=== PATIENT | male | born 1970 | race Caucasian/White ===

== ENCOUNTER 2018-12-01 13:21 | Emergency (ER) | payer BC ==
--- NOTE | 2018-12-01 13:45 | EDM.PDOC ---
ED HPI GENERAL MEDICAL PROBLEM - General Stated Complaint: ELEVATED BLOOD PRESSURE CHEST PAIN Time Seen by Provider: 12/01/18 13:35 Source of Information: Reports: Patient History Limitations: Reports: No Limitations - History of Present Illness INITIAL COMMENTS - FREE TEXT/NARRATIVE: She comes emergency Department today with complaints of midsternal chest pain that started about 10:00 this morning. The patient noticed every time he was climbing up and down the tractor he would become short of breath and had some tightness in his midsternal region. This action is something that he does on a regular basis and never had the symptomology with this before. The symptom would resolve after he was done doing physical activity. His never had any symptomology like this before. Had a heart attack before. He then was ambulating through the grocery store when he noticed the same symptoms as well as a small amount of lightheadedness. He checked his blood pressure while he was at the grocery store and noticed it was quite elevated. He went to the clinic and he was referred to the emergency department for further evaluation. Upon arrival the patient really is without any symptomology. He has no chest pain or shortness of breath difficulty breathing. No nausea no vomiting. No abdominal pain. No weakness dizziness lightheadedness. No palpitations. He has had some recurrent cough over the past 3-4 months but he has been told this is from his gastroesophageal reflux disease. He has no fever no chills. He does not take an aspirin daily. He has felt more tired and fatigued over the past couple of weeks. - Related Data Allergies Allergy/AdvReac Type Severity Reaction Status Date / Time No Known Allergies Allergy Verified 12/01/18 14:22 Home Meds: Home Meds . [No Known Home Meds] 12/01/18 [History] Past Medical History HEENT History: Reports: None Cardiovascular History: Reports: Hypertension Respiratory History: Reports: None Gastrointestinal History: Reports: Diverticulosis, Irritable Bowel Syndrome Genitourinary History: Reports: None Neurological History: Reports: None Psychiatric History: Reports: None Endocrine/Metabolic History: Reports: None Hematologic History: Reports: None Immunologic History: Reports: None Oncologic (Cancer) History: Reports: None Dermatologic History: Reports: None - Infectious Disease History Infectious Disease History: Reports: Chicken Pox - Past Surgical History Musculoskeletal Surgical History: Reports: Other (See Below) ED ROS GENERAL - Review of Systems Review Of Systems: ROS reveals no pertinent complaints other than HPI. ED EXAM, GENERAL - Physical Exam Exam: See Below Exam Limited By: No Limitations General Appearance: Alert, WD/WN, No Apparent Distress Eye Exam: Bilateral Eye: Normal Inspection Ears: Normal External Exam, Normal Canal, Normal TMs Nose: Normal Inspection, Normal Mucosa Throat/Mouth: Normal Inspection, Normal Lips Head: Atraumatic, Normocephalic Neck: Normal Inspection, Supple, Non-Tender Respiratory/Chest: No Respiratory Distress, Lungs Clear, Normal Breath Sounds, No Accessory Muscle Use, Chest Non-Tender Cardiovascular: Normal Peripheral Pulses, Regular Rate, Rhythm, No Edema Peripheral Pulses: 2+: Radial (L), Radial (R), Posterior Tibial (L), Posterior Tibial (R), Dorsalis Pedis (L), Dorsalis Pedis (R) GI/Abdominal: Normal Bowel Sounds, Soft, Non-Tender, No Organomegaly Back Exam: Normal Inspection, Full Range of Motion Extremities: Normal Inspection, Normal Range of Motion, Non-Tender, No Pedal Edema Neurological: Alert, Oriented, Normal Cognition, Normal Gait, No Motor/Sensory Deficits Psychiatric: Normal Affect, Normal Mood Skin Exam: Warm, Dry, Intact, Normal Color, No Rash Lymphatic: No Adenopathy EKG INTERPRETATION EKG Date: 12/01/18 Time: 13:34 Rhythm: NSR Rate (Beats/Min): 88 [place]: LAD-Left [place] Deviation P-Wave: Present QRS: Normal ST-T: Normal QT: Normal Course - Vital Signs Last Recorded V/S: Last Vital Signs Temp 36.6 C 12/01/18 13:30 Pulse 94 12/01/18 13:30 Resp 16 12/01/18 13:30 BP 162/91 H 12/01/18 13:30 Pulse Ox 97 12/01/18 13:30 - Orders/Labs/Meds Orders: Active Orders 24 hr Category Date Time Status EKG 12 Lead [EKG Documentation Completion] [RC] URGENT Care 12/01/18 13:32 Active TROPONIN I [CHEM] Stat Lab 12/01/18 15:21 Received Labs: Laboratory Tests 12/01/18 12/01/18 Range/Units 13:39 13:39 WBC 6.9 (5.0-10.0) 10^3/uL RBC 5.22 (4.6-6.2) 10^6/uL Hgb 16.2 (14.0-18.0) g/dL Hct 46.3 (40.0-54.0) % MCV 88.7 D (80-100) fL MCH 31.0 (27.0-34.0) pg MCHC 35.0 (33.0-35.0) g/dL Plt Count 238 (150-450) 10^3/uL Neut % (Auto) 60.3 (42.2-75.2) % Lymph % (Auto) 25.4 (20.5-50.1) % [place] % (Auto) 10.1 H (2-8) % Eos % (Auto) 3.2 H (1.0-3.0) % Baso % (Auto) 1.0 (0.0-1.0) % Add Manual Diff Yes Neutrophils % (Manual) 55 (42-75) % Band Neutrophils % 1 % Lymphocytes % (Manual) 31 (20-50) % Monocytes % (Manual) 8 (2-8) % Eosinophils % (Manual) 3 (1-3) % Basophils % (Manual) 1 Myelocytes % 1 Sodium 134 L (135-145) mmol/L Potassium 3.9 (3.6-5.0) mmol/L Chloride 101 (101-111) mmol/L Carbon Dioxide 23.0 (21.0-31.0) mmol/L Anion Gap 13.9 BUN 13 (7-18) mg/dL Creatinine 1.0 (0.6-1.3) mg/dL Est Cr Clr Drug Dosing TNP Estimated GFR (MDRD) > 60 BUN/Creatinine Ratio 13.00 Glucose 126 H (74-105) mg/dL Calcium 8.8 (8.4-10.2) mg/dl Total Bilirubin 1.1 H (0.2-1.0) mg/dL AST 44 H (10-42) IU/L ALT 60 (10-60) IU/L Alkaline Phosphatase 57 (42-121) IU/L Troponin I < 0.02 (0.00-0.02) ng/ml Total Protein 7.3 (6.7-8.2) g/dl Albumin 4.0 (3.2-5.5) g/dl Globulin 3.3 Albumin/Globulin Ratio 1.21 Meds: Medications Discontinued Medications Generic Name Dose Route Start Last Admin Trade Name Jose PRN Reason Stop Dose Admin Aspirin 324 mg 12/01/18 13:41 12/01/18 14:01 Aspirin PO 12/01/18 13:42 324 mg ONETIME ONE Administration - Radiology Interpretation Free Text/Narrative:: Chest x-ray per radiology shows no evidence of acute pulmonary disease. - Re-Assessments/Exams Free Text/Narrative Re-Assessment/Exam: 12/01/18 15:47 Initially the patient was given 324 of oral aspirin chewable. GI cocktail. His EKG and laboratory evaluation is rather unremarkable. His blood pressure still minimally elevated. He had stopped taking his blood pressure medication a couple years ago as he has lost weight and his blood pressure improved although he regained that weight and has not started his blood pressure medication He reports that he is a border line diabetic. Really of concerns for some type of anginal type presentation for this patient. I want him to stick around and we will repeat an EKG as well as a troponin. He states that he has better things to do when he needs to go last picker his daughter from school and he will sign out AMA. I did advise him that the risk of heart attack stroke or any other pathology that may kill him as I do not know what's causing his chest pain. He did not have any chest pain while he was in the emergency department. He did consent to redrawing his troponin at this time but he will not wait around for the results. He is clearly understanding of the risk of or undiagnosed other pathology causing his symptoms today. I will send him home with some aspirin to take daily and start him back on his lisinopril. He must follow up with PCP at next available for possible stress test. I am unable to order and schedule this out of the ED> the patient clearly understands the risk of signing out AMA and decides to leave AMA> Departure - Departure Time of Disposition: 15:25 Disposition: Against Medical Advice 07 Clinical Impression: Chest pain Qualifiers: Chest pain type: unspecified Qualified Code(s): R07.9 - Chest pain, unspecified Hypertension Qualifiers: Hypertension type: unspecified Qualified Code(s): I10 - Essential (primary) hypertension Instructions: Nonspecific Chest Pain, Hypertension, [id number], Angina Pectoris, [id number] Forms: ED Department Discharge Additional Instructions: Take an 81mg OTC aspirin daily. Work on lifestyle modification such as exercise weight loss. Lisinopril 10mg a day. RX given to the patient. You are leaving against medical advice so I am unsure of your acute cause of chest pain. See your PCP next available and consider a stress test. Return to the ED if new or worsening symptoms. - My Orders Last 24 Hours: My Active Orders 12/01/18 13:32 EKG 12 Lead [EKG Documentation Completion] [RC] URGENT 12/01/18 15:21 TROPONIN I [CHEM] Stat - Assessment/Plan Last 24 Hours: My Active Orders 12/01/18 13:32 EKG 12 Lead [EKG Documentation Completion] [RC] URGENT 12/01/18 15:21 TROPONIN I [CHEM] Stat Assessment:: Chest pain, normal EKG and troponin unable to repeat as the patient signs out AMA. Question if this is underlying angina or other pathology although I'm unable to determine as the patient signs out AMA. Uncontrolled hypertension. Plan: Take an 81mg OTC aspirin daily. Work on lifestyle modification such as exercise weight loss. Lisinopril 10mg a day. RX given to the patient. You are leaving against medical advice so I am unsure of your acute cause of chest pain. See your PCP next available and consider a stress test. Return to the ED if new or worsening symptoms.
[2018-12-01] MEDS: Aspirin 81 MG Tab.Chew PO ONE (14:01)
[2018-12-01 14:09] LABS: ANION GAP 13.9; CHLORIDE,CL 101 mmol/L (101-111); SODIUM,NA 134 mmol/L (135-145)
[2018-12-01 14:21] VITALS: BP 162/91
== END 2018-12-01 15:32 | disposition left against medical advice (07) ==
LOC: DL.ED 13:21
DX: R07.2 Precordial pain (principal); I10 Essential (primary) hypertension
CPT/HCPCS: 36415; 71046; 80053; 84484; 85025; 93005; 99285; A9270

== ENCOUNTER 2024-09-12 13:56 | Emergency (ER) | payer SELFPAY ==
[2024-09-12] MEDS: Methylnaltrexone 12 MG/0.6 ML SDV SUBCUT ONE (16:53)
[2024-09-12] MEDS: Lidocaine 2% Jelly 10 ML Urojet MUCMEM ONE (17:41)
[2024-09-12] MEDS: Lactulose Soln 10 GM/15 ML 30 ML UD Cup PO ONE (19:05)
[2024-09-12] MEDS: Ketorolac 30 MG/ML SDV IM ONE (20:07)
[2024-09-12] MEDS: hydrALAZINE 20 MG/ML SDV IM ONE (21:14)
[2024-09-12] MEDS: Lidocaine 2% Jelly 5 ML Tube TOP ONE (21:14)
[2024-09-12 21:16] VITALS: BP 177/93; PULSE 87
== END 2024-09-12 21:30 | disposition still patient (30) ==
LOC: DL.ED 13:56
DX: K59.00 Constipation, unspecified (principal); I10 Essential (primary) hypertension; Z79.82 Long term (current) use of aspirin; Z79.84 Long term (current) use of oral hypoglycemic drugs; Z79.899 Other long term (current) drug therapy
CPT/HCPCS: 74019; 96372; 99284; A9270; J1885; J2212-GY